=== PATIENT | female | born 1965 | race Caucasian/White ===

== ENCOUNTER 2017-06-21 07:46 | Day surgery (SDC) | payer OTHER ==
[2017-06-21] MEDS ORDERED: LIDOCAINE 4% SOLUTION 50 ML BTL (10:29)
[2017-06-21] MEDS ORDERED: MIDAZOLAM 1 MG/ML 2 ML INJ ×2 (12:13)
[2017-06-21] MEDS ORDERED: FENTAnyl 50 MCG/ML VIAL ×2 (12:13)
== END 2017-06-21 14:35 | disposition home or self-care (01) ==
LOC: GIL 07:46
DX: Z12.11 Encounter for screening for malignant neoplasm of colon (principal); D12.6 Benign neoplasm of colon, unspecified; K57.90 Diverticulosis of intestine, part unspecified, without perforation or abscess without bleeding; K29.70 Gastritis, unspecified, without bleeding
CPT/HCPCS: 43239; 88305; 88312